=== PATIENT | female | born 1980 | race Caucasian/White ===

== ENCOUNTER 2021-05-19 16:30 | Day surgery (SDC) | payer OTHER, SELFPAY ==
[~2021-05-19] VITALS: Ht 167.6 cm; Wt 93.0 kg
[2021-05-19 14:05] LABS: HCG,QUAL RESULT NEGATIVE (NEGATIVE)
[~2021-05-19 16:30] MED LIST: HYDROmorphone 1 MG/ML INJ. CARTRIDGE IVP PRN; HYDROmorphone 1 MG/ML INJ. CARTRIDGE ONE; KETOROLAC TROMETHAMINE 30 MG VIAL IVP PRN; KETOROLAC TROMETHAMINE 30 MG VIAL ONE; LR 1,000 ML IV.SOLN IV ONE; MIDAZOLAM HCL 5 MG/ML VIAL (VERSED) IV ONE; NS 1000 ML IV.SOLN IV ONE; ONDANSETRON HCL 4 MG/2 ML VIAL IVP PRN; PROPOFOL 200MG/ 20ML VIAL (DIPRIVAN) IV ONE; SEVOFLURANE 15 MIN GAS INH ONE; fentaNYL CITRATE/PF 100 MCG/2 ML AMP ONE
[2021-05-19 17:39] VITALS: BP_SYST 126
== END 2021-05-19 17:10 | disposition home or self-care (01) ==
LOC: SDS 16:30
PROVIDERS: ATTEND Obstetrics & Gynecology
DX: N92.0 Excessive and frequent menstruation with regular cycle (principal); E66.01 Morbid (severe) obesity due to excess calories; Z79.899 Other long term (current) drug therapy
CPT/HCPCS: 36415; 58558; 84703; 87426; 88305; 93005; J1170; J1885; J2250; J2704; J3010; J7030; J7120

== ENCOUNTER 2021-07-31 12:57 | Day surgery (SDC) | payer OTHER ==
[2021-07-30 12:36] LABS: BASOPHILS % (AUTO) 0.7 % (0.0-2.0); EOSINOPHILS # (AUTO) 0.2 K/uL (0.0-0.4); EOSINOPHILS % (AUTO) 2.6 % (0.0-4.0); HEMATOCRIT 32.9 % (36-48); HEMOGLOBIN 10.9 g/dL (12.0-16.0); LYMPHOCYTES # (AUTO) 1.3 K/uL (1.0-5.5); LYMPHOCYTES % (AUTO) 19.7 % (20.5-51.5); MEAN CORPUSCULAR HEMOGLOBIN 28 pg (27-31); MEAN CORPUSCULAR HGB CONC 33 % (32-36); MEAN CORPUSCULAR VOLUME 84 fL (79.0-98.0); MONOCYTES # (AUTO) 0.4 K/uL (0.0-1.0); MONOCYTES % (AUTO) 6.9 % (1.7-9.3); NEUTROPHILS # (AUTO) 4.6 K/uL (1.8-7.7); NEUTROPHILS % (AUTO) 70.1 % (40.0-70.0); PLATELET COUNT (AUTO) 317 K/uL (130-430); RED CELL DISTRIBUTION WIDTH 16.6 % (9.0-15.0); WHITE BLOOD COUNT (AUTO) 6.6 K/uL (4.8-10.8)
[2021-07-30 13:10] LABS: ALBUMIN 3.3 g/dL (3.4-4.8); CALCIUM 8.6 mg/dL (8.4-11.0); CREATININE 0.72 mg/dL (0.55-1.30); POTASSIUM 4.1 mmol/L (3.5-5.1); TOTAL BILIRUBIN 0.2 mg/dL (0.0-1.0)
[~2021-07-31] VITALS: Ht 167.6 cm; Wt 93.4 kg
[~2021-07-31 12:57] MED LIST changes: +CEFAZOLIN SOD 2 GM in D5W 50 ML IV ONE; -HYDROmorphone 1 MG/ML INJ. CARTRIDGE IVP PRN; -HYDROmorphone 1 MG/ML INJ. CARTRIDGE ONE; -KETOROLAC TROMETHAMINE 30 MG VIAL IVP PRN; -KETOROLAC TROMETHAMINE 30 MG VIAL ONE; -LR 1,000 ML IV.SOLN IV ONE; -MIDAZOLAM HCL 5 MG/ML VIAL (VERSED) IV ONE; -NS 1000 ML IV.SOLN IV ONE; -ONDANSETRON HCL 4 MG/2 ML VIAL IVP PRN; -PROPOFOL 200MG/ 20ML VIAL (DIPRIVAN) IV ONE; -SEVOFLURANE 15 MIN GAS INH ONE; -fentaNYL CITRATE/PF 100 MCG/2 ML AMP ONE
[2021-07-31 13:12] LABS: HCG,QUAL RESULT NEGATIVE (NEGATIVE)
[2021-07-31] MEDS ORDERED: OXYC-128 PO (14:19)
[2021-07-31] MEDS ORDERED: IBUP-1969 PO (14:19)
[2021-07-31] MEDS ORDERED: KETOROLAC TROMETHAMINE 30 MG VIAL ONE ×2 (17:35→21:06)
[2021-07-31] MEDS ORDERED: SEVOFLURANE 15 MIN GAS INH ONE (17:35)
[2021-07-31] MEDS ORDERED: NS IRRIG SOLN 1000 ML IR ONE (17:35)
[2021-07-31] MEDS ORDERED: NEOSTIGMINE METHYLSULFATE 1 MG/ML, 10 ML VIAL ONE (17:35)
[2021-07-31] MEDS ORDERED: LR 1,000 ML IV.SOLN IV ONE (17:35)
[2021-07-31] MEDS ORDERED: LIDOCAINE 1% 10 MG/ML, 20 ML MDV ONE (17:35)
[2021-07-31] MEDS ORDERED: SUCCINYLCHOLINE CHLORIDE 20 MG/ML(QUELICIN) ONE (17:35)
[2021-07-31] MEDS ORDERED: ONDANSETRON HCL 4 MG/2 ML VIAL ONE (17:35)
[2021-07-31] MEDS ORDERED: PROPOFOL 200MG/ 20ML VIAL (DIPRIVAN) IV ONE (17:35)
[2021-07-31] MEDS ORDERED: ROCURONIUM BROMIDE 10 MG/ML (ZEMURON) ONE (17:35)
[2021-07-31] MEDS ORDERED: METOCLOPRAMIDE HCL 10 MG/2 ML VIAL ONE (17:35)
[2021-07-31] MEDS ORDERED: GLYCOPYRROLATE 0.2 MG/ML VIAL ONE (17:35)
[2021-07-31] MEDS ORDERED: MIDAZOLAM HCL 2 MG/2 ML VIAL (VERSED) ONE (17:35)
[2021-07-31] MEDS ORDERED: fentaNYL CITRATE/PF 100 MCG/2 ML AMP ONE (17:35)
[2021-07-31] MEDS ORDERED: HYDROmorphone 1 MG/ML INJ. CARTRIDGE IVP PRN (19:15)
[2021-07-31] MEDS ORDERED: ONDANSETRON HCL 4 MG/2 ML VIAL IVP PRN ×2 (19:15→20:00)
[2021-07-31] MEDS ORDERED: HYDROmorphone 2 MG/ML VIAL IVP PRN (19:15)
[2021-07-31] MEDS ORDERED: KETOROLAC TROMETHAMINE 30 MG VIAL IVP PRN (19:15)
[2021-07-31] MEDS ORDERED: LR 1,000 ML IV SCH (19:15)
[2021-07-31] MEDS ORDERED: OXYCODONE/ACETAMINOPHEN 5-325 TABLET PO PRN (20:00)
[2021-07-31 21:38] VITALS: BP_SYST 122
[2021-08-01] MEDS: KETOROLAC TROMETHAMINE 30 MG VIAL IM SCH ×3 (00:13→11:53)
[2021-08-01] MEDS: OXYCODONE/ACETAMINOPHEN 5-325 TABLET PO PRN ×3 (03:25→14:48)
[2021-08-01 08:00] VITALS: BP_SYST 101
[2021-08-01 11:49] VITALS: BP_SYST 108
[2021-08-01 15:23] VITALS: BP_SYST 117
[2021-08-01 16:32] VITALS: BP_SYST 117
== END 2021-08-01 16:50 | disposition home or self-care (01) ==
LOC: SDS 12:57 → SMU 12:58 → SDS 08-01 16:50
PROVIDERS: ATTEND Obstetrics & Gynecology
DX: N80.9 Endometriosis, unspecified (principal); R10.2 Pelvic and perineal pain; N93.9 Abnormal uterine and vaginal bleeding, unspecified; D25.9 Leiomyoma of uterus, unspecified; N94.6 Dysmenorrhea, unspecified; Z79.899 Other long term (current) drug therapy; Z20.822 Contact with and (suspected) exposure to COVID-19
CPT/HCPCS: 36415; 58545; 80053; 84703; 85025; 86886; 86900; 86901; 87081; 88305; 88341; 88342; C1727; J0330; J0690; J1170; J1885 ×2; J2001; J2405; J2704; J2710; J2765; J3010; J3465; J3490; J7060; J7120; U0003; E0190

== ENCOUNTER 2022-02-05 05:31 | Day surgery (SDC) | payer OTHER ==
[2022-02-04 12:54] LABS: HCG,QUAL RESULT NEGATIVE (NEGATIVE)
[2022-02-04 13:10] LABS: BASOPHILS # (AUTO) 0.1 K/uL (0.0-0.2); EOSINOPHILS # (AUTO) 0.2 K/uL (0.0-0.4); EOSINOPHILS % (AUTO) 4.1 % (0.0-4.0); HEMATOCRIT 34.5 % (36-48); HEMOGLOBIN 11.4 g/dL (12.0-16.0); LYMPHOCYTES # (AUTO) 1.3 K/uL (1.0-5.5); LYMPHOCYTES % (AUTO) 23.8 % (20.5-51.5); MEAN CORPUSCULAR HEMOGLOBIN 28 pg (27-31); MEAN CORPUSCULAR HGB CONC 33 % (32-36); MEAN CORPUSCULAR VOLUME 84 fL (79.0-98.0); MONOCYTES # (AUTO) 0.4 K/uL (0.0-1.0); MONOCYTES % (AUTO) 6.8 % (1.7-9.3); NEUTROPHILS # (AUTO) 3.5 K/uL (1.8-7.7); NEUTROPHILS % (AUTO) 64.3 % (40.0-70.0); PLATELET COUNT (AUTO) 285 K/uL (130-430); RED CELL DISTRIBUTION WIDTH 18.2 % (9.0-15.0); WHITE BLOOD COUNT (AUTO) 5.4 K/uL (4.8-10.8)
[2022-02-04 13:44] LABS: ALBUMIN 3.7 g/dL (3.4-4.8); CREATININE 0.7 mg/dL (0.55-1.30); TOTAL BILIRUBIN 0.2 mg/dL (0.0-1.0)
[~2022-02-05] VITALS: Ht 167.6 cm; Wt 96.6 kg
[~2022-02-05 05:31] MED LIST changes: -CEFAZOLIN SOD 2 GM in D5W 50 ML IV ONE; +IBUP-1969 PO; +OXYC-128 PO
[2022-02-05] MEDS ORDERED: CEFAZOLIN SOD 1 GM in D5W 50 ML IV ONE (07:00)
[2022-02-05] MEDS ORDERED: ceFAZolin SODIUM 1 GM VIAL ONE (07:32)
[2022-02-05] MEDS ORDERED: KETOROLAC TROMETHAMINE 30 MG VIAL ONE (07:32)
[2022-02-05] MEDS ORDERED: SUCCINYLCHOLINE CHLORIDE 20 MG/ML(QUELICIN) ONE (07:32)
[2022-02-05] MEDS ORDERED: NS IRRIG SOLN 1000 ML IR ONE (07:32)
[2022-02-05] MEDS ORDERED: LR 1,000 ML IV.SOLN IV ONE (07:32)
[2022-02-05] MEDS ORDERED: METOCLOPRAMIDE HCL 10 MG/2 ML VIAL ONE (07:32)
[2022-02-05] MEDS ORDERED: DESFLURANE 15 MIN GAS INH ONE (07:32)
[2022-02-05] MEDS ORDERED: NS 1000 ML IV.SOLN IV ONE (07:32)
[2022-02-05] MEDS ORDERED: ONDANSETRON HCL 4 MG/2 ML VIAL ONE (07:32)
[2022-02-05] MEDS ORDERED: HYDROmorphone 2 MG/ML VIAL ONE (07:32)
[2022-02-05] MEDS ORDERED: BUPIVACAINE /EPINEPHRINE/PF 0.25% 30 ML VIAL ONE (07:32)
[2022-02-05] MEDS ORDERED: DEXAMETHASONE SOD PHOSPHATE 4 MG/ML VIAL ONE (07:32)
[2022-02-05] MEDS ORDERED: ROCURONIUM BROMIDE 10 MG/ML (ZEMURON) ONE (07:32)
[2022-02-05] MEDS ORDERED: SUGAMMADEX SODIUM 200 MG/2 ML VIAL IV ONE (07:32)
[2022-02-05] MEDS ORDERED: PROPOFOL 200MG/ 20ML VIAL (DIPRIVAN) IV ONE (07:32)
[2022-02-05] MEDS ORDERED: ONDANSETRON HCL 4 MG/2 ML VIAL IVP PRN (08:00)
[2022-02-05] MEDS ORDERED: LR 1,000 ML IV SCH (08:00)
[2022-02-05] MEDS ORDERED: HYDROmorphone 1 MG/ML INJ. CARTRIDGE IVP PRN ×2 (08:00)
[2022-02-05] MEDS ORDERED: HYDROmorphone 2 MG/ML VIAL IVP PRN (08:00)
[2022-02-05] MEDS ORDERED: HYDROmorphone 1 MG/ML INJ. CARTRIDGE ONE (10:15)
[2022-02-05] MEDS ORDERED: HYDROcodone/ACETAMIN 5-325 MG TAB (NORCO/ VICODIN) PO ONE (12:15)
[2022-02-05] MEDS ORDERED: IBUPROFEN 800 MG TABLET PO ONE (12:15)
[2022-02-05] MEDS ORDERED: HYDROcodone/ACETAMIN 5-325 MG TAB (NORCO/ VICODIN) ONE (12:19)
[2022-02-05 15:47] VITALS: BP_SYST 117
== END 2022-02-05 14:45 | disposition home or self-care (01) ==
LOC: SDS 05:31
PROVIDERS: ATTEND Obstetrics & Gynecology
DX: D25.9 Leiomyoma of uterus, unspecified (principal); N72 Inflammatory disease of cervix uteri; N83.291 Other ovarian cyst, right side; N80.9 Endometriosis, unspecified; N93.9 Abnormal uterine and vaginal bleeding, unspecified; R10.2 Pelvic and perineal pain; Z85.020 Personal history of malignant carcinoid tumor of stomach; Z20.822 Contact with and (suspected) exposure to COVID-19; Z79.899 Other long term (current) drug therapy
CPT/HCPCS: 80053; 84703; 85025; 86886; 86900; 86901; 36415; 58571; 88307; U0003; J3490 ×2; J0690; J1100; J1885; J2765; J2405; J2704; J0330; J1170 ×2; J7060; J7120; J7030; C1727; E0190